=== PATIENT | female | born 1935 | race Asian ===

== ENCOUNTER 2022-03-17 01:13 | Inpatient (IN) | payer OTHER ==
[~2022-03-17] VITALS: Ht 152.4 cm; Wt 49.9 kg
[2022-03-17 01:23] VITALS: BP 176/85
--- NOTE | 2022-03-17 01:32 | NUR ---
Dr. Young examining patient.
[2022-03-17] MEDS ORDERED: NACL 0.9% 1,000 ML IV ONE ×2 (01:35→03:10)
[2022-03-17] MEDS ORDERED: ONDANSETRON 4 MG/2 ML VIAL IVP ONE (01:35)
--- NOTE | 2022-03-17 01:36 | NUR ---
Patient taken to bed 3 via wheelchair.
--- NOTE | 2022-03-17 01:55 | NUR ---
Dr. Young verbally informed of critical values of Troponin, Creatinin, and Sodium levels. Dr. Young verbalized understanding, no new orders.
[2022-03-17 01:56] LABS: BASOPHILS % (AUTO) 0.6 % (0.0-2.0); EOSINOPHILS % (AUTO) 0.3 % (0.0-4.0); HEMATOCRIT 35.6 % (36-48); HEMOGLOBIN 12.2 g/dL (12.0-16.0); LYMPHOCYTES # (AUTO) 0.6 K/uL (2.5-16.5); LYMPHOCYTES % (AUTO) 9.5 % (20.5-51.1); MEAN CORPUSCULAR HEMOGLOBIN 33 pg (27-31); MEAN CORPUSCULAR HGB CONC 34 g/dL (33-37); MEAN CORPUSCULAR VOLUME 95.3 fL (80-94); MONOCYTES # (AUTO) 0.6 K/uL (0.8-1.0); MONOCYTES % (AUTO) 8.9 % (1.7-9.3); NEUTROPHILS # (AUTO) 5.5 K/uL (1.8-7.7); NEUTROPHILS % (AUTO) 80.7 % (42.2-75.2); PLATELET COUNT (AUTO) 193 K/uL (140-450); RED BLOOD CELL COUNT(AUTO) 3.73 MIL/uL (4.20-5.40); RED CELL DISTRIBUTION WIDTH 12.2 % (11.6-13.7); WHITE BLOOD COUNT (AUTO) 6.8 K/uL (4.8-10.8)
[2022-03-17 02:16] LABS: ALBUMIN 3.9 g/dL (3.4-5.0); ANION GAP 12.4 (8-16); ASPARTATE AMINOTRANSFERASE 23 U/L (15-37); CARBON DIOXIDE 24.4 mmol/L (21-32); CHLORIDE 87 mmol/L (98-107); CREATININE 0.6 mg/dL (0.6-1.3); GLUCOSE 150 mg/dL (74-106); POTASSIUM 3.8 mmol/L (3.5-5.1); TOTAL BILIRUBIN 0.8 mg/dL (0.0-1.0); UREA NITROGEN, BLOOD 17 mg/dL (7-18)
[2022-03-17 02:26] LABS: SODIUM SERUM 120 mmol/L (136-145)
[2022-03-17] MEDS ORDERED: ASPIRIN 325 MG TAB PO ONE (02:35)
[2022-03-17] MEDS ORDERED: CLONIDINE HYDROCHLORIDE 0.1 MG TAB PO ONE (03:05)
[2022-03-17] MEDS ORDERED: ONDANSETRON 4 MG/2 ML VIAL IVP PRN ×2 (03:15→07:15)
--- NOTE | 2022-03-17 03:59 | NUR ---
PT TAKEN TO CT
--- NOTE | 2022-03-17 04:25 | NUR ---
PT RETURN FROM CT
[2022-03-17] MEDS ORDERED: ATEN25TA7 PO (06:01)
[2022-03-17] MEDS ORDERED: BENA40TA PO (06:01)
[2022-03-17] MEDS ORDERED: AMLO2.5T PO (06:01)
[2022-03-17 06:52] LABS: BASOPHILS % (AUTO) 0.5 % (0.0-2.0); EOSINOPHILS % (AUTO) 0.1 % (0.0-4.0); HEMATOCRIT 29.9 % (36-48); HEMOGLOBIN 10.3 g/dL (12.0-16.0); LYMPHOCYTES # (AUTO) 0.5 K/uL (2.5-16.5); LYMPHOCYTES % (AUTO) 10.2 % (20.5-51.1); MEAN CORPUSCULAR HEMOGLOBIN 33 pg (27-31); MEAN CORPUSCULAR HGB CONC 34 g/dL (33-37); MONOCYTES # (AUTO) 0.6 K/uL (0.8-1.0); MONOCYTES % (AUTO) 10.9 % (1.7-9.3); NEUTROPHILS # (AUTO) 4.2 K/uL (1.8-7.7); NEUTROPHILS % (AUTO) 78.3 % (42.2-75.2); PLATELET COUNT (AUTO) 171 K/uL (140-450); RED BLOOD CELL COUNT(AUTO) 3.15 MIL/uL (4.20-5.40); WHITE BLOOD COUNT (AUTO) 5.4 K/uL (4.8-10.8)
[2022-03-17 07:04] LABS: ANION GAP 10.5 (8-16); CARBON DIOXIDE 23.3 mmol/L (21-32); CHLORIDE 93 mmol/L (98-107); CREATININE 0.6 mg/dL (0.6-1.3); GLUCOSE 110 mg/dL (74-106); POTASSIUM 3.8 mmol/L (3.5-5.1); SODIUM SERUM 123 mmol/L (136-145); UREA NITROGEN, BLOOD 12 mg/dL (7-18)
[2022-03-17] MEDS ORDERED: ACETAMINOPHEN 325 MG TAB PO PRN (07:15)
[2022-03-17] MEDS ORDERED: POTASSIUM CHLORIDE 10 MEQ TABER PO PRN (07:15)
[2022-03-17] MEDS ORDERED: DOCUSATE SODIUM 100 MG GELCAP PO PRN (07:15)
[2022-03-17] MEDS ORDERED: MORPHINE SULFATE 2 MG/ML SYR IVP PRN (07:15)
[2022-03-17] MEDS ORDERED: ZOLPIDEM 10 MG TAB PO PRN (07:15)
[2022-03-17] MEDS ORDERED: NACL 0.9% 1,000 ML IV SCH (07:20)
--- NOTE | 2022-03-17 07:21 | NUR ---
Change of shift report given to AM shift nurse Sunil Carrillo RN. AM shift nurse Sunil Carrillo RN verbalized understanding of report, no further questions.
[2022-03-17] MEDS ORDERED: MAG SULF 2000 MG/WATER PREMIX 50 ML IV PRN (10:00)
--- NOTE | 2022-03-17 12:35 | NUR ---
UA SENT TO LAB
[2022-03-17 12:36] LABS: ANION GAP 7.4 (8-16); CARBON DIOXIDE 26.4 mmol/L (21-32); CHLORIDE 97 mmol/L (98-107); CREATININE 0.5 mg/dL (0.6-1.3); GLUCOSE 94 mg/dL (74-106); POTASSIUM 3.8 mmol/L (3.5-5.1); SODIUM SERUM 127 mmol/L (136-145); UREA NITROGEN, BLOOD 10 mg/dL (7-18)
--- NOTE | 2022-03-17 16:00 | NUR ---
NEUPHROLOGIST CALLED TO REQUEST D/C IVF. NS0.9% IVF D/C'D.
[2022-03-17 17:36] LABS: ANION GAP 13.3 (8-16); CARBON DIOXIDE 22.9 mmol/L (21-32); CHLORIDE 96 mmol/L (98-107); CREATININE 0.8 mg/dL (0.6-1.3); GLUCOSE 96 mg/dL (74-106); POTASSIUM 4.2 mmol/L (3.5-5.1); SODIUM SERUM 128 mmol/L (136-145); UREA NITROGEN, BLOOD 15 mg/dL (7-18)
[2022-03-17] MEDS: atenoloL 25 MG TAB PO SCH (21:50)
[2022-03-17 21:53] LABS: ANION GAP 12.7 (8-16); CHLORIDE 96 mmol/L (98-107); CREATININE 0.9 mg/dL (0.6-1.3); GLUCOSE 107 mg/dL (74-106); POTASSIUM 4.7 mmol/L (3.5-5.1); SODIUM SERUM 127 mmol/L (136-145); UREA NITROGEN, BLOOD 20 mg/dL (7-18)
[2022-03-17 22:00] LABS: PROTHROMBIN TIME 10.4 secs (10.8-13.4)
--- NOTE | 2022-03-17 23:05 | NUR ---
Dr. Bobyb Hedrick verbally informed of critical troponin result 8.2. Dr. Bobby Hedrick verbalized understanding, no new orders.
[2022-03-18 06:12] LABS: BASOPHILS % (AUTO) 0.7 % (0.0-2.0); EOSINOPHILS % (AUTO) 0.8 % (0.0-4.0); HEMATOCRIT 30.3 % (36-48); HEMOGLOBIN 10.5 g/dL (12.0-16.0); LYMPHOCYTES # (AUTO) 0.8 K/uL (2.5-16.5); LYMPHOCYTES % (AUTO) 16.9 % (20.5-51.1); MEAN CORPUSCULAR HEMOGLOBIN 33 pg (27-31); MEAN CORPUSCULAR HGB CONC 35 g/dL (33-37); MEAN CORPUSCULAR VOLUME 94.9 fL (80-94); MONOCYTES # (AUTO) 0.8 K/uL (0.8-1.0); MONOCYTES % (AUTO) 17.5 % (1.7-9.3); NEUTROPHILS # (AUTO) 3.1 K/uL (1.8-7.7); NEUTROPHILS % (AUTO) 64.1 % (42.2-75.2); PLATELET COUNT (AUTO) 176 K/uL (140-450); RED CELL DISTRIBUTION WIDTH 12.4 % (11.6-13.7); WHITE BLOOD COUNT (AUTO) 4.9 K/uL (4.8-10.8)
[2022-03-18 06:39] LABS: ANION GAP 13.8 (8-16); CARBON DIOXIDE 24.4 mmol/L (21-32); CHLORIDE 97 mmol/L (98-107); CREATININE 0.7 mg/dL (0.6-1.3); GLUCOSE 92 mg/dL (74-106); POTASSIUM 4.2 mmol/L (3.5-5.1); SODIUM SERUM 131 mmol/L (136-145); UREA NITROGEN, BLOOD 17 mg/dL (7-18)
--- NOTE | 2022-03-18 07:44 | NUR ---
Change of shift report given to AM shift nurse Ani. AM shift nurse Ani verbalized understanding of report, no further questions.
--- NOTE | 2022-03-18 07:45 | NUR ---
Report received from SHAN Atkinson for transfer of care.
--- NOTE | 2022-03-18 07:50 | NUR ---
Patient will be admitted to care of Dr. Palafox. Admited to Telemtery. Will go to room 112-B. Belongings list completed. Report to SHAN Jeter.
--- NOTE | 2022-03-18 08:26 | NUR ---
The patient's care was reviewed and supervised by Manda Doyle, RN, RN.
[2022-03-18 08:30] VITALS: BP 140/58
[2022-03-18] MEDS: BENAZEPRIL 20 MG TAB PO SCH (08:54)
[2022-03-18] MEDS: amLODIPine 5 MG TAB PO SCH (08:54)
[2022-03-18] MEDS: atenoloL 25 MG TAB PO SCH ×2 (08:54→20:33)
--- NOTE | 2022-03-18 08:59 | NUR ---
PATIENT HAS BEEN SCREENED AND CATEGORIZED LOW NUTRITION RISK. PATIENT WILL BE SEEN WITHIN 7 DAYS OF ADMISSION. 03/23/[address] Addendum: 03/18/22 at [address] REFERRAL RECEIVED NOT APPLICABLE
--- NOTE | 2022-03-18 09:45 | NUR ---
EXPLAINED TO PT WE ARE PENDING URINE SAMPLE, CUP PROVIDED, PENDING URINE
[2022-03-18 12:00] VITALS: BP 145/60
[2022-03-18 16:00] VITALS: BP 111/55
--- NOTE | 2022-03-18 18:40 | NUR ---
PT AOX4, RA >92%, DENIES NAUSEA/VOMITING, NO ACUTE DISTRESS, SAFETY MEASURES MAINTAINED, PT AMBULATES SAFELY WITH NO ASSIST, TOLERATING ALL MEALS, SODIUM IMPROVING, BED LOCKED AND IN LOWEST POSITION, CALL LIGHT WITHIN REACH, PT UPDATED ON POC, PT FREE FROM INJURY AND STABLE FOR ENDORSEMENT TO PM SHIFT.
--- NOTE | 2022-03-18 19:10 | NUR ---
RECEIVED REPORT FROM MORNING NURSE LA. PATIENT SITTING ON BED HAVING DINNER. PATIENT IS ALERT AND ORIENTED X 4. BREATHING EVEN AND UNLABORED, ON ROOM AIR. NO COMPLAINT AT THIS TIME. BED LOCKED AT LOWEST WITH CALL LIGHT WITHIN REACH. WILL CONTINUE TO MONITOR PATIENT.
[2022-03-18 20:00] VITALS: BP 133/60
--- NOTE | 2022-03-18 20:00 | NUR ---
URINE SPECIMEN COLLECTED AND SENT TO LAB.
[2022-03-18 20:01] LABS: APPEARANCE,URINE CLEAR (CLEAR); BILIRUBIN,URINE NEGATIVE (NEGATIVE); BLOOD, URINE TRACE-I (NEGATIVE); COLOR,URINE YELLOW (YELLOW); LEUKOCYTE ESTERASE ,URINE NEGATIVE (NEGATIVE); NITRITE, URINE NEGATIVE (NEGATIVE); UGLUCOSE NEGATIVE (NEGATIVE)
[2022-03-18 20:13] LABS: OTHER CASTS, URINE None Seen /LPF (None Seen); RBC,URINE 0-5 /HPF (0-5); WBC,URINE 0-5 /HPF (0-5)
--- NOTE | 2022-03-18 21:40 | NUR ---
STARTED ON 24 HOUR URINE COLLECTION FOR URINE SODIUM AND URIC ACID. PATIENT INSTRUCTED ON COLLECTION AND VOICED UNDERSTANDING.
[2022-03-19] VITALS: BP 133/56
[2022-03-19 04:00] VITALS: BP 120/53
[2022-03-19 07:20] LABS: BASOPHILS % (AUTO) 0.6 % (0.0-2.0); EOSINOPHILS # (AUTO) 0.1 K/uL (0-0.4); EOSINOPHILS % (AUTO) 1.7 % (0.0-4.0); HEMATOCRIT 32.3 % (36-48); LYMPHOCYTES # (AUTO) 1.2 K/uL (2.5-16.5); LYMPHOCYTES % (AUTO) 23.4 % (20.5-51.1); MEAN CORPUSCULAR HEMOGLOBIN 33 pg (27-31); MEAN CORPUSCULAR HGB CONC 34 g/dL (33-37); MEAN CORPUSCULAR VOLUME 95.5 fL (80-94); MONOCYTES # (AUTO) 0.8 K/uL (0.8-1.0); MONOCYTES % (AUTO) 17.1 % (1.7-9.3); NEUTROPHILS # (AUTO) 2.8 K/uL (1.8-7.7); NEUTROPHILS % (AUTO) 57.2 % (42.2-75.2); PLATELET COUNT (AUTO) 173 K/uL (140-450); RED BLOOD CELL COUNT(AUTO) 3.39 MIL/uL (4.20-5.40); RED CELL DISTRIBUTION WIDTH 12.2 % (11.6-13.7); WHITE BLOOD COUNT (AUTO) 4.9 K/uL (4.8-10.8)
--- NOTE | 2022-03-19 07:20 | NUR ---
BEDSIDE REPORT GIVEN TO MORNING SHIFT RNKATI. PATIENT ASLEEP ON BED WITH NO UNTOWARD S/SX.
--- NOTE | 2022-03-19 07:25 | NUR ---
RECEIVED PT FROM NIGHT RN, PT IS ASLEEP AND LYING ON THE BED WITH SAFETY PRECAUTION I N PLACE, PT IS ON ROOM AIR, RESPIRATION IS EVEN, VISIBLE CHEST RISE AND FALL, IV LINE NOTED ON THE RAC G. 20 ON SALINE LOCK, NO SIGN OF DISTRESS NOTED AND WILL CONTINUE TO MONITOR PT.
[2022-03-19 07:27] LABS: ANION GAP 13.6 (8-16); CARBON DIOXIDE 24.7 mmol/L (21-32); CHLORIDE 95 mmol/L (98-107); CREATININE 0.6 mg/dL (0.6-1.3); GLUCOSE 90 mg/dL (74-106); POTASSIUM 4.3 mmol/L (3.5-5.1); SODIUM SERUM 129 mmol/L (136-145); UREA NITROGEN, BLOOD 22 mg/dL (7-18)
[2022-03-19 08:00] VITALS: BP 146/59
[2022-03-19] MEDS: atenoloL 25 MG TAB PO SCH (09:11)
--- NOTE | 2022-03-19 09:11 | NUR ---
PT W3AS GIVEN THE SCHEDULED AM MEDICATIONS, PARAMETERS CHECKED, BP IS 146/59, PULSE IS 63 MANUALLY.
[2022-03-19] MEDS: BENAZEPRIL 20 MG TAB PO SCH (09:12)
[2022-03-19] MEDS: amLODIPine 5 MG TAB PO SCH (09:12)
--- NOTE | 2022-03-19 09:17 | NUR ---
DC PLANNING: THE PATIENT PRESENTED WITH C/O N/V, H/O HTN. NA+ 120, TROPONIN ELEVATED TO 90, EKG SHOWS NSR. STARTED ON NS, GIVEN ASA. ORDERS FOR CONSULTS WITH CARDIOLOGY AND NEPHROLOGY. CM SPOKE WITH THE PATIENT AT BEDSIDE AND CONFIRMED HER ADDRESS AND PHONE NUMBER. SHE WAS STAYING WITH HER SON JESSICA IN [place] WHEN THIS EPISODE STARTED. SHE IS NORMALLY ACTIVE WITHOUT LIMITATIONS AND HAS NO DME OR H/O HOME HEALTH. SHE LIVES WITH HER IN [place] BUT HE IS CURRENTLY IN A SNF AND HAS DEMENTIA. SHE DOES NOT SEE HER PMD OFTEN BUT WILL FOLLOW UP WHEN SHE'S DISCHARGED. SHE IS ON THREE MEDICATIONS FOR HER HYPERTENSION AND IS COMPLIANT WITH THEM. SHE PLANS TO RETURN TO HER SONS HOME IN [place] WHEN DISCHARGED, DR MARION ROUNDED TODAY AND TOLD THE PATIENT SHE WILL DC. THE PATIENTS SON JESSICA WORKS UNTIL 1999, PATIENT DOES NOT WANT TO GO TO HIS HOUSE UNTIL HE IS ABLE TO PICK HER UP. NO DC NEEDS IDENTIFIED, CM WILL FOLLOW.
[2022-03-19] MEDS ORDERED: AMLO5TAB PO (11:31)
[2022-03-19] MEDS ORDERED: SALT PO (11:31)
[2022-03-19 12:00] VITALS: BP 158/67
[2022-03-19 16:00] VITALS: BP 132/72
--- NOTE | 2022-03-19 18:13 | NUR ---
DISCHARGED PT TO HOME ACCOMPANIED BY SON, DISCHARGED TEACHINGS AND INSTRUCTIOMNS GIVEN TO PT AND VERBALZIED UNDERSTANDING, IV LINE REMOVED AND PT IS STABLE AT THIS TIME.
[2022-03-21 08:16] LABS: CREATININE,URINE RANDOM 15 mg/dL (30-125); POTASSIUM,URINE RANDOM 15 mmol/L (12-75)
== END 2022-03-19 18:15 | disposition home or self-care (01) | DRG 280 ==
LOC: MED 01:13 → MTU 03:25
PROVIDERS: ADMIT Family Medicine; ATTEND Family Medicine
DX: I21.4 Non-ST elevation (NSTEMI) myocardial infarction (principal); G93.41 Metabolic encephalopathy; E87.1 Hypo-osmolality and hyponatremia; Z20.822 Contact with and (suspected) exposure to COVID-19; I10 Essential (primary) hypertension; Z91.09 Other allergy status, other than to drugs and biological substances; Z79.899 Other long term (current) drug therapy
CPT/HCPCS: 36415; 80048; 80053; 81001; 82570; 83036; 83735; 83930; 83935; 84133; 84300; 84443; 84484; 84550; 85025; 85610; 85730; 87081; 93005; 96361; 96374; 99285; J1644; J2405

== ENCOUNTER 2023-07-23 08:01 | Emergency (ER) | payer OTHER ==
[~2023-07-23] VITALS: Ht 152.4 cm; Wt 54.4 kg
[~2023-07-23 08:01] MED LIST: AMLO5TAB PO; ATEN25TA7 PO; BENA40TA PO; SALT PO
[2023-07-23 08:14] VITALS: BP 180/94; PULSE 76; RESP 18; TEMP 97; O2SAT 98
[2023-07-23 08:54] VITALS: BP 145/58; PULSE 64; RESP 18; TEMP 98; O2SAT 99
== END 2023-07-23 08:54 | disposition home or self-care (01) ==
LOC: MED 08:01
DX: I10 Essential (primary) hypertension (principal); Z79.899 Other long term (current) drug therapy
CPT/HCPCS: 99283